=== PATIENT | female | born 1985 | race American Indian/Alaskan Native ===

== ENCOUNTER 2018-04-10 17:09 | Outpatient (CLI) | payer OTHER, MEDICAID ==
[2018-04-10] MEDS ORDERED: LACTATED RINGERS 1,000 ML IV SCH (19:00)
[2018-04-15 10:13] VITALS: BP 124/59
== END 2018-04-10 20:51 | disposition home or self-care (01) ==
LOC: TRG 17:09
PROVIDERS: ATTEND Obstetrics & Gynecology
DX: O47.1 False labor at or after 37 completed weeks of gestation (principal); Z3A.38 38 weeks gestation of pregnancy
CPT/HCPCS: J7120

== ENCOUNTER 2018-04-15 09:23 | Inpatient (IN) | payer OTHER, MEDICAID ==
[2018-04-15] MEDS ORDERED: PEPCID IV ONE ×2 (10:26→10:58)
[2018-04-15] MEDS ORDERED: REGLAN IV ONE ×2 (10:26→10:58)
[2018-04-15] MEDS ORDERED: BICITRA ONE (10:43)
[2018-04-15] MEDS ORDERED: ANCEF/STERILE WATER 2 GM/20 ML 2 GM/20 ML SYRINGE IV ONE (10:44)
[2018-04-15] MEDS ORDERED: BICITRA PO ONE (10:58)
[2018-04-15] MEDS ORDERED: PITOCin/NS 20 UNIT/1000ML DRIP 20 UNITS/1,000 ML BAG IV SCH ×3 (11:00→14:00)
[2018-04-15] MEDS ORDERED: LACTATED RINGERS 1,000 ML IV SCH (11:00)
[2018-04-15] MEDS ORDERED: ANCEF/STERILE WATER 2 GM/20 ML 2 GM/20 ML SYRINGE IV NR (11:00)
[2018-04-15 11:24] LABS: Basophils % (Auto) 0.3 % (0.0-1.8); Eosinophils # (Auto) 0.2 K/mm3 (0.0-0.4); Eosinophils % (Auto) 2.2 % (0.0-4.3); Hematocrit 34.2 % (30.3-42.9); Hemoglobin 11.4 gm/dl (10.1-14.3); Lymphocytes # (Auto) 1.7 K/mm3 (1.2-5.4); Lymphocytes % (Auto) 18.4 % (13.4-35.0); Mean Corpuscular HGB Conc 33 % (30-34); Mean Corpuscular Hemoglobin 29 pg (28-32); Mean Corpuscular Volume 89 fl (79-97); Monocytes # (Auto) 0.6 K/mm3 (0.0-0.8); Monocytes % (Auto) 5.8 % (0.0-7.3); Platelet Count 272 K/mm3 (140-440); Red Blood Count 3.86 M/mm3 (3.65-5.03); Red Cell Distribution Width 15.5 % (13.2-15.2)
[2018-04-15] MEDS: LACTATED RINGERS 1,000 ML IV SCH ×2 (11:40→22:55)
[2018-04-15] MEDS ORDERED: XYLOCAINE MPF 2% ONE (11:58)
[2018-04-15] MEDS ORDERED: ePHEDrine SULFATE ONE (11:59)
[2018-04-15] MEDS ORDERED: ASTRAMORPH PF 10MG/10ML ONE (12:49)
[2018-04-15] MEDS ORDERED: SENOKOT PO PRN (13:54)
[2018-04-15] MEDS ORDERED: MORPHINE IV PRN (13:54)
[2018-04-15] MEDS ORDERED: LANSINOH TP PRN (13:54)
[2018-04-15] MEDS ORDERED: TORADOL IV PRN (13:54)
[2018-04-15] MEDS ORDERED: TUCKS PAD TP PRN (13:54)
[2018-04-15] MEDS ORDERED: ZOFRAN IV PRN (13:54)
[2018-04-15] MEDS ORDERED: NARCAN 0.4 MG/1 ML IV PRN (13:54)
[2018-04-15] MEDS ORDERED: PHENERGAN PR PRN (13:54)
[2018-04-15] MEDS ORDERED: TYLENOL PO PRN (13:54)
--- NOTE | 2018-04-15 13:57 | History and Physical Report ---
History of Present Illness Date of examination: 04/15/18 Date of admission: 04/15/18 09:23 Chief complaint: SIUP at 39 weeks, previous C/section. History of present illness: Patient is a 32 year old , LMP 07/14/17, EDC 04/20/18 at 39 weeks and 2 days gestation who was admitted for elective repeat C/section. She denies any contractions, fluid leakage or bleeding. She reports good movement. Past History Past Medical History: asthma, other (vit D def) Past Surgical History: section USER EXPERIENCE ARCHITECT History: abnormal PAP smear, herpes Social history: no significant social history - Obstetrical History Expected Date of Delivery: 04/20/18 Actual Gestation: 39 Week(s) 2 Day(s) : 7 Para: 2 Spontaneous Abortions: 4 Number of Living Children: 2 #1 Infant Gender: Female year: 2,[birth year] Birthweight: 3.289 kg Method of Delivery: Gestational age at delivery: 38 Complications: none #2 Gender: Male year: 2,[birth year] Birthweight: 2.977 kg Method of Delivery: Gestational age at delivery: 37 Complications: none Medications and Allergies Allergies Allergy/AdvReac Type Severity Reaction Status Date / Time No Known Allergies Allergy Verified 04/15/18 10:07 Home Medications Medication Instructions Recorded Confirmed Last Taken Type No Known Home Medications [No 04/15/18 04/15/18 Unknown History Reported Home Medications] Active Meds: Active Medications Lactated Ringer's (Lactated Ringers) 1,000 mls @ 2,250 mls/hr IV PREOP SORAYA Stop: 04/16/18 11:27 Last Admin: 04/15/18 11:40 Dose: 2,250 mls/hr Oxytocin/Sodium Chloride (Pitocin/Ns 20 Unit/1000ml Drip) 20 units in 1,000 mls @ 0 mls/hr IV TITR SORAYA Cefazolin Sodium (Ancef/Sterile Water 2 Gm/20 Ml) 2 gm in 20 mls @ 80 mls/hr IV PREOP NR; Protocol Stop: 04/15/18 23:59 Lactated Ringer's (Lactated Ringers) 1,000 mls @ 2,250 mls/hr IV PREOP SORAYA Stop: 04/16/18 11:27 Oxytocin/Sodium Chloride (Pitocin/Ns 20 Unit/1000ml Drip) 20 units in 1,000 mls @ 0 mls/hr IV TITR SORAYA - Vital Signs Vital signs: Vital Signs Temp Pulse Resp BP Pulse Ox 97.2 F L 89 20 124/59 96 04/15/18 10:12 04/15/18 10:12 04/15/18 10:12 04/15/18 10:12 04/15/18 10:12 Temp Pulse Resp BP Pulse Ox 97.2 F L 89 20 124/59 96 04/15/18 10:12 04/15/18 10:12 04/15/18 10:12 04/15/18 10:12 04/15/18 10:12 - Physical Exam Cardiovascular: Normal S1, Normal S2 Lungs: Positive: Clear to auscultation Vulva: both: normal Deep Tendon Reflex Grade: Normal +2 - Obstetrical FHR: category 1 Uterine Contraction Monitor Mode: External Cervical Dilatation: 0 Cervical Effacement Percentage: 0 station: -3 Uterine Contraction Pattern: Absent Results Result Diagrams: 04/15/18 11:00 Abnormal lab results 04/15/18 Range/Units 11:00 RDW 15.5 H (13.2-15.2) % Seg Neutrophils % 73.3 H (40.0-70.0) % All other labs normal. Assessment and Plan - Patient Problems (1) 39 weeks gestation of Current Visit: Yes Status: Acute (2) Previous section Current Visit: Yes Status: Acute Plan to address problem: Admit to labor floor. Routine admitting labs. IV hydration. Repeat C/section. Risks and benefits of the procedure were discussed in detail with the patient such as infection, hemorrhage requiring blood transfusion, injury to the bowel, bladder and blood vessels. The patient expressed understanding, her questions were answered, she gave her informed consent. She is NPO. Anesthesia has been notified. (3) Group B streptococcal infection during Current Visit: Yes Status: Acute (4) Anemia Current Visit: Yes Status: Acute Qualifiers: Anemia type: iron deficiency
[2018-04-15] MEDS ORDERED: SODIUM CHLORIDE FLUSH SYRINGE 10 ML IV NR (14:00)
--- NOTE | 2018-04-15 14:00 | Operative Report ---
Operative Report Operative Report: Preoperative diagnosis: 1. SIUP at 39 weeks gestation not in labor. 2. Previous C/section. Postoperative diagnosis: 1. Same as preoperative diagnosis. 2. Dense adhesions of the omentum and parietal peritoneum to the anterior uterine segment and the bladder. Procedure: 1. Repeat low transverse C/section. 2. Lysis of omental adhesions from the anterior uterus and bladder. Surgeon: Dr. Segovia Office Supervisor: none Anesthesia: Epidural Complications: none IVF: RL 1300 cc EBL: 700 cc Urine: 200 cc clear Intraoperative findings: 1. Dense adhesions of the omentum to the anterior uterus and bladder, and of the parietal peritoneum to the bladder. 2. A female found in the BRITANY position, delivered at 12:37 PM, Apgars 8 at 1 minute and 8 at 5 minutes, weight 8 lbs. 1 oz. 3. Normal fallopian tubes and ovaries bilaterally. Procedure details: Risks, benefits, and alternatives of the procedure were discussed in detail with the patient included but not limited to the risk of infection, hemorrhage requiring blood transfusion, injury to the bowel bladder and blood vessels. The patient expressed understanding, her questions were answered, and she gave informed consent. The patient was taken to the operating room with an IV fluid infusing Ringer's lactate. The operating room, she was placed in a sitting position and given epidural anesthesia. Then, she was placed in a dorsal supine position with a leftward tilt. Fletcher catheter and Venodyne boots were placed. The abdomen was washed and she was prepared and draped in usual sterile fashion. After assuring adequate epidural anesthesia, a Pfannenstiel skin incision was made in the lower abdomen abdomen at the level of the previous scar using the scalpel. This incision was carried down to the underlying fascia using the Bovie. The fascia was opened bilaterally in a curvilinear fashion using the Bovie. 2 straight Kocker clamps were used to grasp the upper edge of the fascia form which the underlying rectus abdominis muscle was dissected off using the Bovie. A similar procedure was done with the lower edge of the fascia to dissect the underlying rectus abdominis muscle. The muscle was bluntly from the midline by pulling. The parietal peritoneum was grasped with 2 hemostats clamps and entered sharply using Metzenbaum seizures. There was dense adhesions of the omentum and parietal peritoneum to the anterior uterine segment and the bladder. Lysis of adhesions was done. A bladder flap was created. Mina'O retractor was placed in the incision for proper visualization. A low transverse incision was made in the lower uterine segment using the scalpel and extended bilaterally in a curvilinear fashion using bandage scissors. The amniotic sac was ruptured and it was copious amount of clear amniotic fluids. The infant was found in an BRITANY position. The head was delivered atraumatically followed by the delivery of the shoulders and the rest of the body at 12:37 PM. The cord was clamped 2 and cut and was handed off to the awaiting unit control worker. The is a female, Apgars were 8 at 1 minute and 8 at 5 minutes, weight 8 pounds and 1 ounce. Cord blood was collected. The placenta was delivered manually and it was complete with a three -vessel cord. The uterine incision was repaired in a running locked fashion using 0 Vicryl sutures. A second layer of imbrication was placed. The gutters were cleaned of clot and debris using dry lap sponges. The instruments were removed from the abdominal cavity. The fascia was closed in a running fashion using 0 Vicryl sutures. The skin was closed in a subcutaneous fashion using 4- 0 Vicryl for on a Trace needle. Sterile dressing was placed. The counts of laps, needles, sponges, and instruments are correct 2. The patient tolerated the procedure well. She was taken to the recovery room in a stable condition.
[2018-04-15] MEDS ORDERED: DILAUDID IV PRN (14:05)
[2018-04-15] MEDS: TORADOL IV PRN (18:15)
[2018-04-16] MEDS: TORADOL IV PRN ×2 (01:02→06:40)
[2018-04-16 01:49] LABS: Hematocrit 30.7 % (30.3-42.9); Hemoglobin 10.3 gm/dl (10.1-14.3)
[2018-04-16] MEDS: PERCOCET 5/325 PO PRN ×3 (09:05→23:14)
--- NOTE | 2018-04-16 09:57 | Progress Note ---
Assessment and Plan A: POD#1 s/p repeat c/s Stable pain well controlled P: Routine PP/PO orders Encouraged ambulation Abdominal binder Subjective - Subjective Date of service: 04/16/18 Principal diagnosis: POD#1 s/p Repeat C/S Patient reports: appetite normal, voiding normally, pain well controlled, flatus , ambulating normally, no bowel movement [place]: doing well, nursing well Objective - Vital Signs Latest vital signs: Vital Signs Temp Pulse Resp BP BP Pulse Ox 04/16/18 08:01 98.6 F 91 H 20 98/60 96 04/16/18 06:40 18 04/16/18 06:15 99 F 94 H 18 132/63 04/16/18 01:32 18 04/16/18 01:16 98.9 F 90 18 119/70 04/16/18 01:02 20 04/15/18 20:00 98.5 F 94 H 18 115/76 04/15/18 18:45 18 04/15/18 15:53 97.7 F 84 16 132/85 100 04/15/18 15:15 98.2 F 86 20 136/83 98 04/15/18 14:56 98.2 F 04/15/18 14:50 87 17 127/86 100 04/15/18 14:40 90 17 122/77 100 04/15/18 14:30 79 12 119/77 100 04/15/18 14:20 80 15 117/66 100 04/15/18 14:10 82 15 111/45 100 04/15/18 14:00 90 17 110/49 100 04/15/18 13:56 97.7 F 04/15/18 13:55 100 04/15/18 10:12 97.2 F L 89 20 124/59 96 Intake and Output 04/15/18 04/16/18 04/16/18 23:59 07:59 15:59 Intake Total 120 Output Total 600 Balance -480 Intake: Intake, Free Water 120 Output: Urine 600 Void 600 Other: Total, Output Amount 600 - Exam Breasts: Present: normal, Cardiovascular: Present: Regular rate, Normal S1, Normal S2 Lungs: Present: Clear to auscultation, Normal air movement Abdomen: Present: normal appearance, soft, tenderness (as expected post-op), normal bowel sounds. Absent: distention Vulva: both: normal Uterus: Present: firm, fundal height at umbilicus Extremities: Present: normal Deep Tendon Reflex Grade: Normal +2 Incision: Present: normal, dry, intact, dressed (pressure dressing CDI) - Labs Labs: Abnormal lab results 04/15/18 Range/Units 11:00 RDW 15.5 H (13.2-15.2) % Seg Neutrophils % 73.3 H (40.0-70.0) %
[2018-04-16] MEDS: FEOSOL PO SCH (10:50)
[2018-04-16] MEDS: PRENATAL VITAMIN PO SCH (10:50)
[2018-04-16] MEDS: MILK OF MAGNESIA PO PRN (18:34)
[2018-04-16] MEDS: MYLICON PO PRN (19:57)
[2018-04-16] MEDS: MOTRIN PO PRN (19:57)
[2018-04-17] MEDS: MOTRIN PO PRN ×2 (01:39→21:09)
[2018-04-17] MEDS: MYLICON PO PRN (01:39)
[2018-04-17] MEDS: PERCOCET 5/325 PO PRN ×4 (05:14→21:09)
[2018-04-17] MEDS ORDERED: DEPO-PROVERA (CONTRACEPTION) IM ONE (10:41)
--- NOTE | 2018-04-17 10:44 | Progress Note ---
Assessment and Plan A: POD #2 Stable P: Follow Routine PostOp Orders D/C Home in the AM Depo Provera prior to discharge RTO in one Week Subjective - Subjective Date of service: 04/17/18 Principal diagnosis: POD#1 s/p Repeat C/S Patient reports: appetite normal, voiding normally, pain well controlled, flatus , bowel movement, ambulating normally [place]: doing well, bottle feeding Objective - Vital Signs Latest vital signs: Vital Signs Temp Pulse Resp BP BP Pulse Ox 04/17/18 05:14 18 04/17/18 01:39 18 04/17/18 00:00 98.6 F 66 16 108/71 04/16/18 23:14 18 04/16/18 19:57 18 04/16/18 18:30 18 04/16/18 15:40 98.8 F 94 H 20 125/66 95 04/16/18 12:38 98.3 F 102 H 16 135/68 98 Intake and Output 04/16/18 04/17/18 04/17/18 22:59 06:59 14:59 Intake Total 250 Output Total 500 Balance -250 Intake: Oral 250 Output: Urine 500 Void 500 Other: Total, Intake Amount 250 Total, Output Amount 500 # Voids Void 1 - Exam Breasts: Present: normal Cardiovascular: Present: Regular rate Lungs: Present: Clear to auscultation, Normal air movement Abdomen: Present: normal appearance, soft, normal bowel sounds Uterus: Present: normal, firm, fundal height below umbilicus Extremities: Present: normal Incision: Present: normal, dry, intact
--- NOTE | 2018-04-17 10:46 | Discharge Summary ---
Providers - Providers Date of Admission: 04/15/18 09:23 Date of discharge: 04/18/18 Attending physician: PONCE BACON MD Primary care physician: PONCE BACON MD Hospitalization Reason for admission: section Delivery: Procedure: repeat low transverse Episiotomy: none Incision: normal, dry, intact complications: none Discharge diagnosis: IUP at term delivered [place] baby: female Condition at discharge: Good Disposition: DC-01 TO HOME OR SELFCARE Plan - Discharge Medications Prescriptions: Ibuprofen [Motrin] 800 mg PO Q8HR PRN #20 tablet PRN Reason: Pain, Mild (1-3) oxyCODONE /ACETAMINOPHEN [Percocet 5/325] 1 tab PO Q4HR #14 tab - Provider Discharge Summary Activity: routine, no sex for 6 weeks, no heavy lifting 4 weeks, no strenuous exercise Diet: routine Instructions: routine Additional instructions: [] Smoking cessation referral if applicable(refer to patient education folder for contact #) [] Refer to [facility]'s [facility] Booklet Call your doctor immediately for: * Fever > 100.5 * Heavy vaginal bleeding ( >1 pad per hour) * Severe persistent headache * Shortness of breath * Reddened, hot, painful area to leg or breast * Drainage or odor from incision. * Keep incision clean and dry at all times and follow doctor's instructions regarding bathing/showering - Follow up plan Follow up: PONCE BACON MD [Primary Care Provider] - 7 Days
[2018-04-17] MEDS: FEOSOL PO SCH (12:13)
[2018-04-17] MEDS: PRENATAL VITAMIN PO SCH (12:13)
[2018-04-17] MEDS: MILK OF MAGNESIA PO PRN (21:08)
[2018-04-18] MEDS: PERCOCET 5/325 PO PRN ×2 (05:27→12:35)
[2018-04-18 08:48] VITALS: BP 111/64
[2018-04-18] MEDS: MOTRIN PO PRN (12:33)
[2018-04-18] MEDS: FEOSOL PO SCH (12:45)
[2018-04-18] MEDS: PRENATAL VITAMIN PO SCH (12:46)
== END 2018-04-18 17:25 | disposition home or self-care (01) | DRG 765 ==
LOC: LD 09:23 → OB 18:04
PROVIDERS: ADMIT Obstetrics & Gynecology; ATTEND Obstetrics & Gynecology
PROC: 10D00Z1 Extraction of Products of Conception, Low, Open Approach (ICD-10-PCS; principal; 2018-04-15)
PROC: 0DNU0ZZ Release Omentum, Open Approach (ICD-10-PCS; 2018-04-15)
PROC: 0DNW0ZZ Release Peritoneum, Open Approach (ICD-10-PCS; 2018-04-15)
PROC: 0TNB0ZZ Release Bladder, Open Approach (ICD-10-PCS; 2018-04-15)
DX: O34.211 Maternal care for low transverse scar from previous cesarean delivery (principal); O98.82 Other maternal infectious and parasitic diseases complicating childbirth; O99.52 Diseases of the respiratory system complicating childbirth; J45.909 Unspecified asthma, uncomplicated; B95.1 Streptococcus, group B, as the cause of diseases classified elsewhere; O99.02 Anemia complicating childbirth; O99.62 Diseases of the digestive system complicating childbirth; K66.0 Peritoneal adhesions (postprocedural) (postinfection); D64.9 Anemia, unspecified; Z37.0 Single live birth; Z3A.39 39 weeks gestation of pregnancy
CPT/HCPCS: 36415; 85014; 85018; 85025; 86850; 86900; 86901; 99211; G0463; J0690; J1050; J1885; J2274; J2590; J2765; J7120